=== PATIENT | male | born 1990 | race Caucasian/White ===

== ENCOUNTER 2021-09-26 20:28 | Observation (INO) | payer BC ==
[~2021-09-26] VITALS: Ht 175.3 cm; Wt 59.0 kg
[~2021-09-26 20:28] MED LIST: AUGMENTIN500TAB PO; LORTAB5 PO; NAPROSYN500 MG OR; NO HOME MEDS; PENICILLN VK500 MG PO
[2021-09-26 20:57] LABS: HEMATOCRIT 48.8 % (39.0-50.0); IMMATURE GRANULOCYTES 0.1 % (0.0-5.0); MEAN CELL VOLUME 95.3 fL CALC (80.0-100.0); MEAN CORPUSCULAR HGB 31.3 pG CALC (26.0-32.0); MEAN CORPUSCULAR HGB CONC 32.8 g/dL CAL (32.0-36.0); NEUT# 4.87 thou/uL (1.82-7.42); RED BLOOD COUNT 5.12 mill/uL (4.70-6.10)
[2021-09-26 21:17] LABS: ALBUMIN 4.7 g/dL (3.2-5.0); ALKALINE PHOSPHATASE 80 u/l (38-126); ANION GAP 13 (6-22 (CALC)); BILIRUBIN, TOTAL 0.5 mg/dL (0.0-1.4); BUN 16 mg/dL (9-20); BUN/CREATININE RATIO 17 (12-20 (CALC)); CARBON DIOXIDE 28 mmol/l (22-30); CHLORIDE 102 mmol/l (95-108); ETHYL ALCOHOL 0 mg/dl (0-30); GFR > 60 ML/MIN (>=60 (CALC)); GFR FOR AFR.AMER. > 60 ML/MIN (>=60 (CALC)); LIPASE 80 u/l (23-300); SGOT/AST 27 u/l (17-59); SODIUM 140 mmol/l (137-146)
[2021-09-27 00:54] LABS: C-REACTIVE PROTEIN < 0.5 mg/dL (0-0.9); CALCULATED LDLCHOLESTEROL 121 mg/dL (62-129 (CALC)); CHOLESTEROL HDL RATIO 4.6 (<4.4 (CALC)); HDL CHOLESTEROL 37 mg/dL (>=40); MAGNESIUM 1.9 mg/dL (1.6-2.3); TOTAL CHOLESTEROL 170 mg/dl (0-199); TOTAL TRIGLYCERIDES 59 mg/dl (30-149); VLDL CHOLESTROL 12 mg/dl (5-56 (CALC))
[2021-09-27 01:17] LABS: URINE BILIRUBIN - DIPSTICK NEGATIVE (NEGATIVE); URINE BLOOD DIPSTICK NEGATIVE (NEGATIVE); URINE COLOR YELLOW; URINE GLUCOSE - DIPSTICK NEGATIVE (NEGATIVE); URINE KETONE NEGATIVE (NEGATIVE); URINE LEUK ESTERASE NEGATIVE (NEGATIVE); URINE NITRITE - DIPSTICK NEGATIVE (Negative); URINE PROTEIN - DIPSTICK NEGATIVE (NEG-TRACE); URINE UROBILINOGEN - DIPSTICK 0.2 E.U./dL (0.2)
[2021-09-27 01:27] VITALS: BP 114/79
[2021-09-27 04:00] VITALS: BP 122/68
[2021-09-27 06:42] LABS: ANION GAP 14 (6-22 (CALC)); BUN 15 mg/dL (9-20); BUN/CREATININE RATIO 17 (12-20 (CALC)); CARBON DIOXIDE 26 mmol/l (22-30); CHLORIDE 104 mmol/l (95-108); CREATININE 0.8 mg/dL (0.7-1.3); GFR > 60 ML/MIN (>=60 (CALC)); GFR FOR AFR.AMER. > 60 ML/MIN (>=60 (CALC)); MAGNESIUM 1.8 mg/dL (1.6-2.3); POTASSIUM 4.5 mmol/l (3.5-5.1); SODIUM 139 mmol/l (137-146)
[2021-09-27 06:44] LABS: HEMATOCRIT 46.6 % (39.0-50.0); HEMOGLOBIN 15.6 g/dl (14.0-18.0); MEAN CELL VOLUME 94.9 fL CALC (80.0-100.0); MEAN CORPUSCULAR HGB 31.8 pG CALC (26.0-32.0); MEAN CORPUSCULAR HGB CONC 33.5 g/dL CAL (32.0-36.0); RED BLOOD COUNT 4.91 mill/uL (4.70-6.10); RED CELL DISTRI WIDTH 12.1 % (11.5-15.5)
[2021-09-27 07:10] VITALS: BP 122/63
[2021-09-27 11:02] VITALS: BP 131/78
[2021-09-27] MEDS ORDERED: LACRI-LUBE S.O.P. OS (14:45)
[2021-09-27] MEDS ORDERED: VALTREX1 GM PO (14:48)
[2021-09-27] MEDS ORDERED: PREDNISONE10 MG PO (14:53)
== END 2021-09-27 16:23 | disposition home or self-care (01) | DRG 74 ==
LOC: ED 20:28 → ED-I 23:40 → ED 23:56 → MS2 23:57
PROVIDERS: ADMIT Hospitalist; ATTEND Hospitalist
DX: G51.0 Bell's palsy (principal); R27.8 Other lack of coordination; R20.0 Anesthesia of skin; F12.10 Cannabis abuse, uncomplicated; F15.10 Other stimulant abuse, uncomplicated; F11.10 Opioid abuse, uncomplicated; F17.210 Nicotine dependence, cigarettes, uncomplicated; Z20.822 Contact with and (suspected) exposure to COVID-19
CPT/HCPCS: A9579; G0378; Q9967